=== PATIENT | male | born 1975 | race Caucasian/White ===

== ENCOUNTER 2017-01-09 16:02 | Emergency (ER) | payer OTHER ==
--- NOTE | ~2017-01-09 | EKG ---
PATIENT: ANA LAN UNIT #: [id number] Ventricular Rate: 75 BPM Atrial Rate: 75 BPM P-R Interval: 140 ms QRS Duration: 86 ms Q-T Interval: 364 ms QTC Calculation(Bezet): 406 ms P Johnston: 44 degrees Calculated R Johnston: 66 degrees Calculated T Johnston: 17 degrees Diagnosis Line: Normal sinus rhythm Diagnosis Line: Normal ECG Diagnosis Line: No previous ECGs available Diagnosis Line: Confirmed by WENCESLAO MATA MD ([id number]) on 01/19/2017 Diagnosis Line: 7:56:54 PM INTERPRETING MD: ADOLFO WADE
--- NOTE | ~2017-01-09 | CT71 ---
[facility] A Service of [facility] RADIOLOGY TEXT RESULTS PATIENT: ANA LAN LOCATION: SED : [birth year] UNIT #: [id number] AGE: [address]: Hussain Alfredo MD SEX: M ORDER DR: [id number] [place] [address] [id number] E MR#: [id number] Acc #: [id number] NAME: ANA LAN. : 1975 SEX: M STUDY DATE/TIME: 01/09/2017 16:01 UNIT: SED ROOM: STUDY DESCRIPTION: CT Head Wo Contrast Attending Physician: Hussain Alfredo M.D. Ordering Physician: Hussain Alfredo M.D. MEDICAL IMAGING REPORT This report is preliminary unless electronic signature is present. EXAM Head CT without HISTORY Fainted 3 times and 1 hour, hit head with loss of consciousness, fell four times this morning. No cancer history. This CT exam was performed with one or more of the following radiation dose reduction techniques: automatic exposure control, adjustment of mA and/or kV according to patient size, and iterative reconstruction. COMMENT Routine noncontrast head CT is reviewed. No previous. No displaced calvarial fracture. Mastoid air cells are clear. Minor mucosal thickening in the paranasal sinuses. No air-fluid level in the visualized paranasal sinuses. There is no evidence for acute intracranial hemorrhage or extra axial fluid collection. The ventricles are normal in size and configuration and the correa-white junction is well-maintained. Mild inferior vermian hypoplasia. No intracranial mass effect. Basilar cisterns patent. IMPRESSION 1. Negative noncontrast head CT. No acute intracranial injury. Dictated by... Anastasia Cooley M.D. THIS IS AN ELECTRONICALLY VERIFIED REPORT Anastasia Cooley M.D. at 01/10/2017 10:24 AM ELIUD/jannet [facility] A Service [facility] RADIOLOGY TEXT RESULTS PATIENT: ANA LAN LOCATION: SED : [birth year] UNIT #: [id number] AGE: [address]: Hussain Alfredo MD SEX: M ORDER DR: TD: 01/10/2017 06:14 JOB #: [id number] MEDICAL IMAGING REPORT Page 1 of 1
--- NOTE | ~2017-01-09 | CT16 ---
[facility] A Service of [facility] RADIOLOGY TEXT RESULTS PATIENT: ANA LAN LOCATION: SED : [birth year] UNIT #: [id number] AGE: [address]: Hussain Alfredo MD SEX: M ORDER DR: [id number] [address] [address] [id number] E MR#: [id number] Acc #: [id number] NAME: ANA LAN. : 1975 SEX: M STUDY DATE/TIME: 01/09/2017 16:38 UNIT: SED ROOM: STUDY DESCRIPTION: CT Angio Chest for PE Attending Physician: Hussain Alfredo M.D. Ordering Physician: Hussain Alfredo M.D. MEDICAL IMAGING REPORT This report is preliminary unless electronic signature is present. EXAM CT angiogram chest with IV contrast HISTORY Left shoulder pain today, elevated D-dimer, repeated syncope today. TECHNIQUE This CT exam was performed with one or more of the following radiation dose reduction techniques: automatic exposure control, adjustment of mA and/or kV according to patient size, and iterative reconstruction. FINDINGS IV contrast and CT angiogram of the chest was performed with 3-D reconstructions. The initial scan was limited by suboptimal pulmonary artery contrast opacification of the exam was repeated, but the repeat images are also suboptimal in regard to the limited contrast in the pulmonary arteries. Additional delayed scans were obtained through the upper abdomen. There is a moderate-sized perisplenic hematoma with intrasplenic blood or a combination of intrasplenic blood and laceration. There is also a small contained area of active bleed along the posterior margin of the mid spleen measuring close to 1 cm. Small amount of perihepatic fluid, could also be secondary to blood, and there is a small amount of fluid in the pericolic gutters bilaterally. I spoke to the patient's physician in the emergency room at the time of this dictation to discussed these findings directly. No pulmonary infiltrates. No pleural effusions. Normal caliber thoracic aorta. Normal-caliber pulmonary arteries. No pulmonary embolus is identified. Sensitivity is limited in detecting pulmonary emboli due to the contrast density. No pericardial effusion. No adenopathy. [facility]. [facility] A Service of [facility] RADIOLOGY TEXT RESULTS PATIENT: NAA LAN LOCATION: [facility] : [birth year] UNIT #: [id number] AGE: [address]: Hussain Alfredo MD SEX: M ORDER DR: IMPRESSION 1. Perisplenic hematoma measures up to approximately 1.5 cm in thickness and there is an associated intrasplenic hematoma or laceration in the mid to inferior spleen with an area of active bleeding along the posterior margin of the mid spleen. There is additional small amount of perihepatic fluid, likely blood. The spleen measures close to 11 cm in length. 2. No pulmonary embolus is identified but sensitivity is limited due to suboptimal contrast opacification of the pulmonary arteries, despite scan repetition. Normal-caliber pulmonary arteries. 3. Normal caliber thoracic aorta. 4. No pulmonary infiltrates or effusions. No pneumothorax. Dictated by... Joseph Conner M.D. THIS IS AN ELECTRONICALLY VERIFIED REPORT Joseph Conner M.D. at 01/09/2017 10:55 PM NEELIMA/brigette TD: 01/09/2017 21:58 JOB #: [id number] MEDICAL IMAGING REPORT Page 1 of 1
[2017-01-09 16:02] LABS: POC - CKMB <1.0 ng/mL (0.0-7.9); POC - MYOGLOBIN 24.6 ng/mL (0.0-169.0)
[2017-01-09 16:03] LABS: POC - TROPONIN <0.05 ng/mL (<=0.05)
[2017-01-09 16:15] LABS: BASOPHIL% 0.4 % (0-2.5); DIFF IND NO; EOSINOPHIL# 0.1 X10e3 (0-0.7); EOSINOPHIL% 1.3 % (0.0-7.0); HEMOGLOBIN 13.3 gm/dL (13.0-16.0); LYMPHOCYTE# 1.9 X10e3 (1.0-3.5); LYMPHOCYTE% 17.5 % (17.0-45.0); MEAN CELL VOLUME 92.8 FL (83-96); MEAN CORPUSCULAR HEMOGLOBIN 31.8 PG (28-34); MEAN CORPUSCULAR HGB CONC 34.2 g/dL (30-36); MEAN PLATELET VOLUME 12.8 FL (6.5-11.5); MONOCYTE# 1.1 X10e3 (0-1.0); MONOCYTE% 10.3 % (3.0-12.0); NEUTROPHIL# 7.5 X10e3 (1.5-7.1); NEUTROPHIL% 70.5 % (40-75); PLATELET COUNT 111 X10e3 (140-420); RED CELL DISTRIBUTION WIDTH 12.3 % (11.0-15.5); WHITE BLOOD COUNT 10.7 X10e3 (4.0-10.5)
[2017-01-09 16:16] LABS: ALBUMIN SERUM 4.2 g/dL (3.5-5.0); ALKALINE PHOSPHATASE 44 U/L (32-92); ALT (SGPT) 44 U/L (10-40); AST (SGOT) 43 U/L (10-42); BILIRUBIN, DIRECT 0.1 mg/dL (0.0-0.2); BILIRUBIN,INDIRECT 0.6 mg/dL (0.0-0.9); BILIRUBIN,TOTAL 0.7 mg/dL (0.2-2.0); BLOOD UREA NITROGEN 19 mg/dL (9-23); BUN/CREATININE RATIO 17.27; CARBON DIOXIDE 24 mmol/L (22-31); CHLORIDE 105 mmol/L (100-111); CREATININE SERUM 1.1 mg/dL (0.6-1.4); GLOM FILT RATE Estimated 81.8 mL/min (>60); GLUCOSE FASTING 137 mg/dL (70-110); MAGNESIUM 1.9 mg/dL (1.6-3.0); POTASSIUM 4.1 mmol/L (3.5-5.1); SODIUM 136 mmol/L (135-145)
[2017-01-09 16:18] LABS: ALCOHOL BLOOD <5 mg/dL (0)
[2017-01-09 16:26] LABS: PROTEIN TOTAL SERUM 6.7 g/dL (6.0-8.3)
== END 2017-01-09 19:37 | disposition hospice, home (50) ==
LOC: SED 16:02
PROVIDERS: Emergency Medicine
DX: S36.029A Unspecified contusion of spleen, initial encounter (principal); R55 Syncope and collapse; G43.909 Migraine, unspecified, not intractable, without status migrainosus; W18.00XA Striking against unspecified object with subsequent fall, initial encounter; Y92.009 Unspecified place in unspecified non-institutional (private) residence as the place of occurrence of the external cause
CPT/HCPCS: 36415; 70450; 71275; 80048; 80076; 82553; 82947; 83735; 83874; 83880; 84484; 85025; 85379; 93005; 96360; 99285; G0480; J1170; Q9967